=== PATIENT | male | born 1955 | race Hispanic/Latino ===

== ENCOUNTER 2023-07-17 19:33 | Emergency (ER) | payer MEDICARE ==
[~2023-07-17] VITALS: Ht 172.7 cm; Wt 67.1 kg
[2023-07-17 19:50] LABS: BASOPHILS # (AUTO) 0.1 (0.0-0.1); EOSINOPHILS % 0.2 % (0.0-6.0); HEMATOCRIT 42.1 % (38.2-49.6); HEMOGLOBIN 15.1 g/dL (14.0-18.0); LYMPHOCYTES # (AUTO) 2.5 (1.0-3.2); LYMPHOCYTES % 25.7 % (18.0-39.1); MEAN CORPUSCULAR HEMOGLOBIN 33.2 pg (28-32); MEAN CORPUSCULAR HGB CONC 35.9 g/dL (31-35); MEAN CORPUSCULAR VOLUME 92.5 fL (81-99); MONOCYTES # (AUTO) 0.8 (0.2-0.8); MONOCYTES % 8.4 % (4.4-11.3); NEUTROPHILS # (AUTO) 6.3 (2.1-6.9); NEUTROPHILS % 64.5 % (38.7-80.0); PLATELET COUNT 422 x10e3/uL (140-360); RED BLOOD COUNT 4.55 x10e6/uL (4.3-5.7); RED CELL DISTRIBUTION WIDTH 14.5 % (11.7-14.4); WHITE BLOOD COUNT 9.76 x10e3/uL (4.8-10.8)
[2023-07-17 20:06] LABS: ALBUMIN 3.8 g/dL (3.5-5.0); ALBUMIN/GLOBULIN RATIO 0.9 (0.8-2.0); ANION GAP 15.2 mmol/L (8-16); CREATININE, SERUM 0.73 mg/dL (0.72-1.25); POTASSIUM 4.2 mmol/L (3.5-5.1)
[2023-07-18 02:08] VITALS: O2SAT 95
[2023-07-18] MEDS ORDERED: IOPAMIDOL 370 MG/ML 100 ML INFUS..BTL INJ ONE (05:55)
[2023-07-18] MEDS ORDERED: SODIUM CHLORIDE 0.9% 100 ML ONE (05:58)
== END 2023-07-18 04:33 | disposition other institution (70) ==
LOC: ER 19:42
DX: R47.81 Slurred speech (principal); I63.9 Cerebral infarction, unspecified; G81.94 Hemiplegia, unspecified affecting left nondominant side; R94.31 Abnormal electrocardiogram [ECG] [EKG]
CPT/HCPCS: 36415; 70450; 70496; 70498; 71045; 80053; 84484; 85025; 93005; 99284; J7050; Q9967